=== PATIENT | male | born 1990 | race Caucasian/White ===

== ENCOUNTER 2023-04-11 14:47 | Emergency (ER) | payer BC, SELFPAY ==
[2023-04-11 14:51] VITALS: BP 168/108; PULSE 107; RESP 20; TEMP 36.6; O2SAT 100
[2023-04-11 14:57] LABS: Glucose Point of Care 107 mg/dl (65-105)
== END 2023-04-11 19:00 | disposition left against medical advice (07) ==
LOC: ANHED 18:59
PROVIDERS: Emergency Provider Emergency Medicine; PCP Family Medicine
DX: Z04.1 Encounter for examination and observation following transport accident (principal)
CPT/HCPCS: 82948; 99199